=== PATIENT | male | born 1960 | race Caucasian/White ===

== ENCOUNTER 2016-08-09 10:49 | Emergency (ER) | payer MEDICAID ==
[~2016-08-09] VITALS: Ht 172.7 cm; Wt 88.5 kg
[2016-08-09 11:05] VITALS: BP 136/95; PULSE 100; RESP 16; TEMP 98.3; O2SAT 97
--- NOTE | 2016-08-09 11:05 | NUR ---
Pt to bed 7
[2016-08-09] MEDS ORDERED: LIDOCAINE/EPI 1% 1:100000 20 ML VIAL IJ ONE (11:15)
--- NOTE | 2016-08-09 11:15 | NUR ---
Dr. Lucas at bedside for evaluation
--- NOTE | 2016-08-09 11:20 | NUR ---
55-year-old male,presents to ED complains of laceration to the right inner forearm about 10 minutes prior to arrival to the ED pt was trying to open the bucket surrounding a lemon tree bleeding controlled. Pt denies numbness, tingling, chest pain, palpitations, nausea vomiting.
[2016-08-09] MEDS ORDERED: BACITRACIN 1 GM OINT TP ONE (11:45)
--- NOTE | 2016-08-09 11:45 | NUR ---
Pt tolerated wound repair well.
[2016-08-09 12:09] VITALS: BP 132/95; PULSE 100; RESP 16; TEMP 98.3; O2SAT 97
--- NOTE | 2016-08-09 12:09 | NUR ---
Patient given written and verbal discharge instructions and verbalizes understanding. ER MD discussed with patient the results and treatment provided. Patient in stable condition. ID arm band Rx of given. Patient educated on pain management and to follow up with PMD. Pain Scale 0/10. Opportunity for questions provided and answered.
== END 2016-08-09 12:09 | disposition home or self-care (01) ==
LOC: SED 10:49
DX: S51.811A Laceration without foreign body of right forearm, initial encounter (principal); Z89.021 Acquired absence of right finger(s); X58.XXXA Exposure to other specified factors, initial encounter; Y93.89 Activity, other specified; Y92.89 Other specified places as the place of occurrence of the external cause; Y99.8 Other external cause status
CPT/HCPCS: 99283